=== PATIENT | female | born 1960 | race Two or more races ===

== ENCOUNTER 2017-03-03 21:20 | Inpatient (IN) | payer MEDICAID, OTHER ==
[~2017-03-03] VITALS: Ht 152.4 cm; Wt 86.1 kg
[2017-03-03] MEDS ORDERED: ALBUTEROL SULFATE 2.5MG/0.5ML ONE (21:35)
[2017-03-03 21:49] LABS: BASOPHILS # (AUTO) 0.11 x10^3/uL (0-0.1); BASOPHILS % (AUTO) 1 % (0-1); EOSINOPHILS # (AUTO) 1.26 x10^3/uL (0-0.4); EOSINOPHILS % (AUTO) 16 % (1-7); LYMPHOCYTES % (AUTO) 42 % (22-44); MD NO; MEAN CORPUSCULAR HEMOGLOBIN 28.7 pg (27.0-34.8); MEAN CORPUSCULAR HGB CONC 33.6 g/dL (32.4-35.8); MEAN CORPUSCULAR VOLUME 85.5 fL (80-100); MEAN PLATELET VOLUME 8.2 fL (7.4-10.4); MONOCYTES # (AUTO) 0.67 x10^3/uL (0.2-0.8); MONOCYTES % (AUTO) 8 % (2-9); NEUTROPHILS # (AUTO) 2.66 x10^3/uL (1.8-6.8); NEUTROPHILS % (AUTO) 33 % (42-75); PLATELET COUNT 341 x10^3/uL (130-400); RED BLOOD COUNT 5.59 x10^6/uL (3.82-5.3); RED CELL DISTRIBUTION WIDTH 12.6 % (9.6-15.2)
[2017-03-03 21:59] LABS: ALBUMIN 3.8 g/dL (3.4-5.0); ANION GAP 7 mmol/L (5-15); CALCIUM 8.7 mg/dL (8.5-10.1); CHLORIDE 108 mmol/L (98-107); CREATININE 0.71 mg/dL (0.55-1.02)
[2017-03-03] MEDS ORDERED: METF100P3 PO (21:59)
[2017-03-03] MEDS ORDERED: LISI-424 PO (22:00)
[2017-03-03] MEDS ORDERED: ALBUTEROL SULFATE 2.5 MG/3 ML NPPB ONE ×2 (22:00)
[2017-03-03] MEDS ORDERED: ALBUTEROL/IPRATROPIUM 2.5MG/0.5MG, 3 ML NPPB ONE (22:00)
[2017-03-03] MEDS ORDERED: HYDR12.53 PO (22:01)
[2017-03-03] MEDS ORDERED: PRED5POW3 PO (22:02)
[2017-03-03 22:03] LABS: TROPONIN I < 0.015 ng/mL (0.000-0.045)
[2017-03-03] MEDS ORDERED: ALBUTEROL SULFATE 2.5 MG/3 ML ONE (22:05)
[2017-03-03] MEDS ORDERED: AZITHROMYCIN 500 MG in SODIUM CHLORIDE 0.9% 250 ML IV ONE (23:30)
[2017-03-04] MEDS ORDERED: SODIUM CHLORIDE 0.9% 1,000ML IVBOLUS ONE
[2017-03-04] MEDS ORDERED: ENALAPRILAT 1.25 MG/ML, 2ML IVPush PRN
[2017-03-04] MEDS ORDERED: TEMAZEPAM 15 MG CAPSULE PO PRN
[2017-03-04] MEDS ORDERED: GUAIFENESIN/DM 200-20MG, 10ML UDC PO PRN ×2
[2017-03-04] MEDS ORDERED: POLYETHYLENE GLYCOL 17 GM PACKET PO PRN
[2017-03-04] MEDS ORDERED: ONDANSETRON ODT 4 MG PO PRN
[2017-03-04 01:35] VITALS: BP 158/99
[2017-03-04 01:41] VITALS: BP 158/99
[2017-03-04] MEDS: ACETAMINOPHEN 325 MG TABLET PO PRN ×2 (02:25→16:34)
[2017-03-04 02:49] LABS: RAPID INFLUENZA A Negative (Negative); RAPID INFLUENZA B Negative (Negative)
[2017-03-04] MEDS: methylPREDNISolone SOD SUCC 40 MG/ML IVPush SCH ×2 (03:36→12:23)
[2017-03-04] MEDS: MONTELUKAST 10 MG TABLET PO SCH ×2 (03:37→19:58)
[2017-03-04] MEDS ORDERED: ALBUTEROL/IPRATROPIUM 2.5MG/0.5MG, 3 ML NPPB PRN (04:00)
[2017-03-04] MEDS ORDERED: ALBUTEROL/IPRATROPIUM 2.5MG/0.5MG, 3 ML NPPB SCH (07:00)
[2017-03-04 07:42] VITALS: BP 112/74
[2017-03-04] MEDS: LORATADINE 10 MG TABLET PO SCH (08:17)
[2017-03-04] MEDS: metFORMIN 500 MG TABLET PO SCH ×2 (08:17→17:41)
[2017-03-04] MEDS: AZITHROMYCIN 250 MG TABLET PO SCH (08:18)
[2017-03-04] MEDS ORDERED: LISINOPRIL 20 MG TABLET PO ONE (09:00)
[2017-03-04] MEDS: INSULIN ASPART 100 UNITS/ML, PEN SQ-INSULIN SCH ×4 (09:35→19:58)
[2017-03-04] MEDS: ALBUTEROL/IPRATROPIUM 2.5MG/0.5MG, 3 ML NPPB SCH ×4 (10:50→22:30)
[2017-03-04 12:53] VITALS: BP 147/91
[2017-03-04] MEDS ORDERED: PNEUMOCOCCAL 23 VACCINE IM-VACC ONE (16:00)
[2017-03-04] MEDS ORDERED: FLU VACC QS2017-18 (36MOS+) UP/PF 0.5 ML IM-VACC ONE (16:00)
[2017-03-04 19:53] VITALS: BP 118/74
[2017-03-05] MEDS: methylPREDNISolone SOD SUCC 40 MG/ML IVPush SCH ×2 (00:10→12:24)
[2017-03-05 02:55] VITALS: BP 108/70
[2017-03-05] MEDS: ALBUTEROL/IPRATROPIUM 2.5MG/0.5MG, 3 ML NPPB SCH ×3 (06:00→15:24)
[2017-03-05 06:10] LABS: BASOPHILS # (AUTO) 0.02 x10^3/uL (0-0.1); BASOPHILS % (AUTO) 0 % (0-1); EOSINOPHILS # (AUTO) 0.01 x10^3/uL (0-0.4); EOSINOPHILS % (AUTO) 0 % (1-7); LYMPHOCYTES # (AUTO) 1.22 x10^3/uL (1-3.4); LYMPHOCYTES % (AUTO) 9 % (22-44); MD NO; MEAN CORPUSCULAR HEMOGLOBIN 28.7 pg (27.0-34.8); MEAN CORPUSCULAR HGB CONC 33.7 g/dL (32.4-35.8); MEAN PLATELET VOLUME 8.6 fL (7.4-10.4); MONOCYTES # (AUTO) 0.23 x10^3/uL (0.2-0.8); MONOCYTES % (AUTO) 2 % (2-9); NEUTROPHILS # (AUTO) 12.21 x10^3/uL (1.8-6.8); NEUTROPHILS % (AUTO) 89 % (42-75); PLATELET COUNT 345 x10^3/uL (130-400); RED CELL DISTRIBUTION WIDTH 12.8 % (9.6-15.2)
[2017-03-05 06:24] LABS: ANION GAP 8 mmol/L (5-15); CALCIUM 9.1 mg/dL (8.5-10.1); CHLORIDE 109 mmol/L (98-107)
[2017-03-05 06:27] LABS: CREATININE 0.78 mg/dL (0.55-1.02)
[2017-03-05 07:44] VITALS: BP 118/75
[2017-03-05] MEDS: INSULIN ASPART 100 UNITS/ML, PEN SQ-INSULIN SCH ×2 (09:45→12:21)
[2017-03-05] MEDS: metFORMIN 500 MG TABLET PO SCH (09:46)
[2017-03-05] MEDS: LORATADINE 10 MG TABLET PO SCH (09:46)
[2017-03-05] MEDS: AZITHROMYCIN 250 MG TABLET PO SCH (09:46)
[2017-03-05 13:59] VITALS: BP 136/83
[2017-03-05] MEDS ORDERED: GUAI5SYR PO (15:32)
[2017-03-05] MEDS ORDERED: PRED10TA PO (15:32)
[2017-03-05] MEDS ORDERED: ALBU8.5H8 INH (15:32)
[2017-03-05] MEDS ORDERED: AZIT250T89 PO (15:32)
== END 2017-03-05 17:40 | disposition home or self-care (01) | DRG 202 ==
LOC: ED 22:23 → EDIP 23:35 → 5SO 03-04 00:47 → 4WST 03-05 05:41
PROVIDERS: ADMIT Internal Medicine; ATTEND Internal Medicine
PROC: 3E0234Z Introduction of Serum, Toxoid and Vaccine into Muscle, Percutaneous Approach (ICD-10-PCS; principal; 2017-03-04)
PROC: 3E0234Z Introduction of Serum, Toxoid and Vaccine into Muscle, Percutaneous Approach (ICD-10-PCS; 2017-03-04)
DX: J45.51 Severe persistent asthma with (acute) exacerbation (principal); J96.01 Acute respiratory failure with hypoxia; D72.1 Eosinophilia; I10 Essential (primary) hypertension; J20.9 Acute bronchitis, unspecified; E11.9 Type 2 diabetes mellitus without complications; E66.9 Obesity, unspecified; R94.31 Abnormal electrocardiogram [ECG] [EKG]; J06.9 Acute upper respiratory infection, unspecified; Z68.37 Body mass index [BMI] 37.0-37.9, adult; Z79.84 Long term (current) use of oral hypoglycemic drugs; Z79.899 Other long term (current) drug therapy; Z23 Encounter for immunization
CPT/HCPCS: 36415; 71045; 80048; 82040; 82962; 84484; 85025; 87081; 87400; 87880; 90686; 90732; 93005; 94640; 96361; 96374; J0456; J1815; J7613; J7620; J2920; J7030; J7050; J7512

== ENCOUNTER 2019-03-22 15:47 | Emergency (ER) | payer MEDICAID, OTHER ==
[~2019-03-22] VITALS: Ht 157.5 cm; Wt 92.9 kg
[~2019-03-22 15:47] MED LIST: ALBU8.5H8 INH; AZIT250T89 PO; GUAI5SYR PO; HYDR12.517 PO; LISI-424 PO; METF100P3 PO; PRED10TA PO; PRED5POW3 PO
[2019-03-22] MEDS ORDERED: ONDANSETRON 2MG/ML, 2ML IVPush ONE (16:30)
[2019-03-22 16:36] LABS: BASOPHILS # (AUTO) 0.02 x10^3/uL (0-0.1); BASOPHILS % (AUTO) 1 % (0-1); EOSINOPHILS # (AUTO) 0.05 x10^3/uL (0-0.4); EOSINOPHILS % (AUTO) 1 % (1-7); LYMPHOCYTES # (AUTO) 0.99 x10^3/uL (1-3.4); LYMPHOCYTES % (AUTO) 20 % (22-44); MD NO; MEAN CORPUSCULAR HEMOGLOBIN 29.2 pg (27.0-34.8); MEAN CORPUSCULAR HGB CONC 33.6 g/dL (32.4-35.8); MEAN CORPUSCULAR VOLUME 86.9 fL (80-100); MEAN PLATELET VOLUME 8.7 fL (7.4-10.4); MONOCYTES % (AUTO) 4 % (2-9); NEUTROPHILS # (AUTO) 3.76 x10^3/uL (1.8-6.8); NEUTROPHILS % (AUTO) 75 % (42-75); PLATELET COUNT 312 x10^3/uL (130-400); RED BLOOD COUNT 5.28 x10^6/uL (3.82-5.3); RED CELL DISTRIBUTION WIDTH 12.8 % (9.6-15.2)
[2019-03-22 16:46] LABS: ALANINE AMINOTRANSFERASE 44 U/L (12-78); ALBUMIN 3.6 g/dL (3.4-5.0); ANION GAP 7 mmol/L (5-15); CALCIUM 8.6 mg/dL (8.5-10.1); CHLORIDE 111 mmol/L (98-107); CREATININE 0.86 mg/dL (0.55-1.02)
[2019-03-22 16:49] LABS: ALKALINE PHOSPHATASE 181 U/L (45-117); BILIRUBIN,TOTAL 0.8 mg/dL (0.2-1.0); TOTAL PROTEIN 7.6 g/dL (6.4-8.2)
[2019-03-22] MEDS ORDERED: MORPHINE SULFATE 4 MG/ML, 1ML ONE ×2 (17:08→17:58)
[2019-03-22] MEDS ORDERED: ONDANSETRON 2MG/ML, 2ML ONE (17:08)
[2019-03-22] MEDS ORDERED: KETOROLAC 30 MG/1 ML ONE (17:10)
[2019-03-22] MEDS: MORPHINE SULFATE 4 MG/ML, 1ML IVPush PRN ×2 (17:10→18:00)
--- NOTE | 2019-03-22 17:23 | NUR ---
AFTER ULTRASOUND COMPLETED IV ESTABLISHED AND MEDICATED FOR PAIN AND NAUSEA NOTED ON MAR
[2019-03-22] MEDS ORDERED: KETOROLAC 30 MG/1 ML IVPush ONE (17:30)
--- NOTE | 2019-03-22 17:43 | NUR ---
MD SPEAKING WITH PT ABOUT TEST RESULTS
[2019-03-22 18:19] VITALS: BP 122/84
== END 2019-03-22 18:33 | disposition home or self-care (01) ==
LOC: ED 18:30
DX: K80.20 Calculus of gallbladder without cholecystitis without obstruction (principal); I10 Essential (primary) hypertension; E11.9 Type 2 diabetes mellitus without complications
CPT/HCPCS: 36415; 76700; 80053; 83690; 85025; 96374; 96375; 96376; 99284; J1885; J2270; J2405

== ENCOUNTER 2020-07-27 17:18 | Emergency (ER) | payer SELFPAY ==
[~2020-07-27] VITALS: Ht 160 cm; Wt 80.5 kg
[~2020-07-27 17:18] MED LIST changes: -LISI-424 PO; +LISI-606 PO
--- NOTE | 2020-07-27 17:35 | NUR ---
INDUSTRIAL PAINTER: EKG DONE IN TRIAGE. PT 88% ON RA AND PLACED ON 2 L OF O2 NC TO INCREASE SPO2 TO 95%. BARGE HAND NOTIFIED OF PT CONDITION IN TRIAGE. ROOM ASSIGNMENT GIVEN TO THIS RN AT THIS TIME.
--- NOTE | 2020-07-27 18:17 | NUR ---
Pt states she uses her nebulizer multiple times a day when she needs it. She's need it more recently with the problem that brings her here today. Pt states 3 months ago she began feeling full. Pt denies pain. Pt states she is continually needing to take meds to have a BM. LBM yesterday. Pt states difficulty breathing. Using 2L NC here, no home O2. MD Harper at bedside for eval.
[2020-07-27 18:27] LABS: MEAN CORPUSCULAR HGB CONC 33.6 g/dL (32.4-35.8); PLATELET COUNT 315 x10^3/uL (130-400); RED BLOOD COUNT 5.15 x10^6/uL (3.82-5.3); RED CELL DISTRIBUTION WIDTH 12.9 % (9.6-15.2)
[2020-07-27] MEDS ORDERED: ALBUTEROL/IPRATROPIUM 2.5MG/0.5MG, 3 ML NPPB ONE (18:30)
[2020-07-27 18:38] LABS: ALANINE AMINOTRANSFERASE 21 U/L (12-78); ALBUMIN 3.4 g/dL (3.4-5.0); ANION GAP 7 mmol/L (5-15); CALCIUM 8.5 mg/dL (8.5-10.1); CHLORIDE 109 mmol/L (98-107); CREATININE 0.63 mg/dL (0.55-1.02)
[2020-07-27 18:40] LABS: ALKALINE PHOSPHATASE 95 U/L (45-117); BILIRUBIN,TOTAL 0.6 mg/dL (0.2-1.0); TOTAL PROTEIN 7.2 g/dL (6.4-8.2)
--- NOTE | 2020-07-27 18:48 | NUR ---
Pt to imaging.
[2020-07-27 19:08] LABS: <PLATELET ESTIMATE> ADEQUATE; <PLT MORPHOLOGY> NORMAL PLT MORPH; EOS#(MANUAL) 1.66 x10^3/uL (0.0-0.4); EOS% (MANUAL) 23 % (1-7); LYMPH#(MANUAL) 2.95 x10^3/uL (1-3.4); LYMPHS% (MANUAL) 41 % (22-44); MONOS#(MANUAL) 0.36 x10^3/uL (0.3-2.7); MONOS% (MANUAL) 5 % (2-9); SEG#(MANUAL) 2.23 x10^3/uL (1.8-6.8); SEGS% (MANUAL) 31 % (42-75)
[2020-07-27 19:10] LABS: <RBC MORPHOLOGY> NORMAL
--- NOTE | 2020-07-27 19:12 | NUR ---
Report to MANUEL RUSSELL, to assume full care.
[2020-07-27] MEDS ORDERED: ALBUTEROL/IPRATROPIUM 2.5MG/0.5MG, 3 ML ONE (19:16)
[2020-07-27 19:47] VITALS: BP 135/80
== END 2020-07-27 19:59 | disposition home or self-care (01) ==
LOC: ED 18:16
DX: J45.40 Moderate persistent asthma, uncomplicated (principal); K20.90 Esophagitis, unspecified without bleeding; G89.29 Other chronic pain; R06.02 Shortness of breath; R94.31 Abnormal electrocardiogram [ECG] [EKG]; E11.9 Type 2 diabetes mellitus without complications; I10 Essential (primary) hypertension; J45.909 Unspecified asthma, uncomplicated
CPT/HCPCS: 36415; 71045; 74220; 80053; 85025; 93005; 94640; 99285

== ENCOUNTER 2020-08-26 20:59 | Inpatient (IN) | payer OTHER ==
[~2020-08-26] VITALS: Ht 154.9 cm; Wt 78.6 kg
[2020-08-26] MEDS ORDERED: ONDANSETRON 2MG/ML, 2ML ONE (21:28)
[2020-08-26] MEDS ORDERED: HYDROmorphone 1 MG/ML, 1ML INJ ONE (21:28)
[2020-08-26] MEDS ORDERED: KETOROLAC 30 MG/1 ML ONE (21:28)
[2020-08-26] MEDS ORDERED: HYDROmorphone 1 MG/ML, 1ML INJ IV ONE (21:30)
[2020-08-26] MEDS ORDERED: KETOROLAC 30 MG/1 ML IVPush ONE (21:30)
[2020-08-26] MEDS ORDERED: SODIUM CHLORIDE 0.9% 1,000ML IVBOLUS ONE (21:30)
[2020-08-26] MEDS ORDERED: SODIUM CHLORIDE FLUSH 10ML SYR IVF ONE (21:30)
[2020-08-26] MEDS ORDERED: ONDANSETRON 2MG/ML, 2ML IVPush ONE (21:30)
[2020-08-26 22:15] LABS: MICROSCOPIC AUTO
[2020-08-26 22:20] LABS: BASOPHILS % (AUTO) 1 % (0-1); EOSINOPHILS % (AUTO) 10 % (1-7); LYMPHOCYTES % (AUTO) 12 % (22-44); MEAN CORPUSCULAR HEMOGLOBIN 28.9 pg (27.0-34.8); MEAN CORPUSCULAR HGB CONC 33.4 g/dL (32.4-35.8); MEAN PLATELET VOLUME 8.6 fL (7.4-10.4); MONOCYTES % (AUTO) 10 % (2-9); NEUTROPHILS % (AUTO) 67 % (42-75); PLATELET COUNT 347 x10^3/uL (130-400); RED BLOOD COUNT 5.65 x10^6/uL (3.82-5.3); RED CELL DISTRIBUTION WIDTH 12.4 % (9.6-15.2)
[2020-08-26 22:24] LABS: ALANINE AMINOTRANSFERASE 23 U/L (12-78); ALBUMIN 3.8 g/dL (3.4-5.0); ANION GAP 7 mmol/L (5-15); CALCIUM 9.2 mg/dL (8.5-10.1); CHLORIDE 101 mmol/L (98-107)
[2020-08-26 22:29] LABS: ALKALINE PHOSPHATASE 108 U/L (45-117); BILIRUBIN,TOTAL 1.1 mg/dL (0.2-1.0); TOTAL PROTEIN 8.8 g/dL (6.4-8.2); TROPONIN I < 0.015 ng/mL (0.000-0.045)
--- NOTE | 2020-08-26 22:32 | NUR ---
passed PO challenge
--- NOTE | 2020-08-26 22:49 | NUR ---
Pt desat when asleep, placed on 2L NC to maintain appropriate O2 sat
[2020-08-27] MEDS ORDERED: MORPHINE SULFATE 4 MG/ML, 1ML ONE (01:58)
[2020-08-27] MEDS ORDERED: MORPHINE SULFATE 4 MG/ML, 1ML IVPush PRN (02:00)
[2020-08-27] MEDS ORDERED: OMNIPAQUE 350 MG/ML, 100ML BOTTLE ONE (02:56)
[2020-08-27] MEDS ORDERED: AZITHROMYCIN 500 MG in SODIUM CHLORIDE 0.9% 250 ML IVPB ONE (03:30)
[2020-08-27] MEDS ORDERED: CEFTRIAXONE 1,000 MG in DEXTROSE 5% 50 ML IVPB ONE (03:30)
[2020-08-27] MEDS ORDERED: MELATONIN 5 MG TABLET PO PRN (04:00)
[2020-08-27] MEDS ORDERED: LABETALOL 5MG/ML, 20ML IVPush PRN (04:00)
[2020-08-27] MEDS: ACETAMINOPHEN 500 MG TABLET PO SCH ×6 (04:00→23:36)
[2020-08-27] MEDS ORDERED: ONDANSETRON 2MG/ML, 2ML IVPush PRN (04:00)
--- NOTE | 2020-08-27 04:50 | NUR ---
Parvin avelar in ED - 08/27/20 at 0459 by WILLIE Pt given morphine for pain, stating "morphine doesn't work, only dilaudid" pt asked if they still want the morphine which he replied "yes". Pt told that we can try the med that is ordered and reassess pain to see if we need further action. Pt agreed to this intervention, STACIE
[2020-08-27 04:51] LABS: BASOPHILS % (AUTO) 1 % (0-1); EOSINOPHILS % (AUTO) 8 % (1-7); LYMPHOCYTES % (AUTO) 15 % (22-44); MEAN CORPUSCULAR HGB CONC 33.4 g/dL (32.4-35.8); MEAN PLATELET VOLUME 8.1 fL (7.4-10.4); MONOCYTES % (AUTO) 11 % (2-9); NEUTROPHILS % (AUTO) 64 % (42-75); PLATELET COUNT 281 x10^3/uL (130-400); RED BLOOD COUNT 4.74 x10^6/uL (3.82-5.3); RED CELL DISTRIBUTION WIDTH 12.3 % (9.6-15.2)
--- NOTE | 2020-08-27 04:59 | NUR ---
Pt continues to rest in bed with eyes closed, even and symmetrical chest rise, VSS, at bedside
[2020-08-27] MEDS ORDERED: ALBUTEROL SULFATE 2.5 MG/3 ML NPPB PRN (05:00)
[2020-08-27 05:02] LABS: ANION GAP 4 mmol/L (5-15); CALCIUM 7.9 mg/dL (8.5-10.1); CHLORIDE 104 mmol/L (98-107); CREATININE 0.67 mg/dL (0.55-1.02)
[2020-08-27] MEDS ORDERED: ALBUTEROL SULFATE 2.5 MG/3 ML ONE (05:03)
--- NOTE | 2020-08-27 05:10 | NUR ---
Report to Amanda JACKSON
[2020-08-27] MEDS: morphine SULFATE 10 MG/ML, 1ML IVPush PRN (05:53)
[2020-08-27 05:57] VITALS: BP 117/75
[2020-08-27] MEDS ORDERED: LISI1TAB39 PO (06:03)
[2020-08-27] MEDS ORDERED: MONT10TA17 PO (06:10)
[2020-08-27] MEDS ORDERED: LORA10TA41 PO (06:10)
[2020-08-27] MEDS ORDERED: methylPREDNISolone SOD SUCC 40 MG/ML IV ONE (06:30)
[2020-08-27] MEDS: INSULIN LISPRO 100 UNITS/ML, PEN SQ-INSULIN SCH ×4 (07:00→21:02)
[2020-08-27] MEDS ORDERED: ALBUTEROL SULFATE 2.5 MG/3 ML NPPB SCH (07:00)
[2020-08-27 07:34] VITALS: BP 104/69
[2020-08-27] MEDS ORDERED: FAMOTIDINE 20 MG/2 ML IVPush SCH (09:00)
[2020-08-27] MEDS: ENOXAPARIN 40 MG/0.4 ML SQ SCH (10:33)
[2020-08-27] MEDS: ALBUTEROL HFA 90 MCG/SPRAY INH SCH ×2 (10:34→16:48)
[2020-08-27 12:41] VITALS: BP 111/70
[2020-08-27] MEDS ORDERED: METF500T17 PO (14:49)
[2020-08-27 19:35] VITALS: BP 111/68
[2020-08-27] MEDS: FAMOTIDINE 20 MG TABLET PO SCH (19:43)
[2020-08-27] MEDS: CEFTRIAXONE 1,000 MG in DEXTROSE 5% 50 ML IVPB SCH (21:02)
[2020-08-27 23:37] VITALS: BP 108/61
[2020-08-28] MEDS: ACETAMINOPHEN 500 MG TABLET PO SCH ×5 (03:27→20:25)
[2020-08-28] MEDS: AZITHROMYCIN 500 MG TABLET PO SCH ×2 (03:28→08:56)
[2020-08-28] MEDS ORDERED: CEFTRIAXONE 2 GM in DEXTROSE 5% 50 ML IVPB SCH (04:30)
[2020-08-28 06:23] LABS: BASOPHILS % (AUTO) 0 % (0-1); EOSINOPHILS % (AUTO) 2 % (1-7); LYMPHOCYTES % (AUTO) 17 % (22-44); MEAN CORPUSCULAR HEMOGLOBIN 28.7 pg (27.0-34.8); MEAN PLATELET VOLUME 8.8 fL (7.4-10.4); MONOCYTES % (AUTO) 8 % (2-9); NEUTROPHILS % (AUTO) 73 % (42-75); PLATELET COUNT 344 x10^3/uL (130-400); RED BLOOD COUNT 4.86 x10^6/uL (3.82-5.3); RED CELL DISTRIBUTION WIDTH 12.4 % (9.6-15.2)
[2020-08-28 06:31] LABS: ALANINE AMINOTRANSFERASE 17 U/L (12-78); ALBUMIN 2.9 g/dL (3.4-5.0); ANION GAP 3 mmol/L (5-15); CALCIUM 8.8 mg/dL (8.5-10.1); CHLORIDE 107 mmol/L (98-107); CREATININE 0.54 mg/dL (0.55-1.02)
[2020-08-28 06:33] LABS: ALKALINE PHOSPHATASE 83 U/L (45-117); BILIRUBIN,TOTAL 0.5 mg/dL (0.2-1.0); TOTAL PROTEIN 7.2 g/dL (6.4-8.2)
[2020-08-28] MEDS: INSULIN LISPRO 100 UNITS/ML, PEN SQ-INSULIN SCH ×4 (07:00→19:48)
[2020-08-28] MEDS: ALBUTEROL SULFATE 2.5 MG/3 ML NPPB SCH ×5 (07:50→22:00)
[2020-08-28 08:06] VITALS: BP 148/84
[2020-08-28] MEDS: ENOXAPARIN 40 MG/0.4 ML SQ SCH (08:56)
[2020-08-28] MEDS: morphine SULFATE 10 MG/ML, 1ML IVPush PRN ×4 (08:56→20:42)
[2020-08-28] MEDS: FAMOTIDINE 20 MG TABLET PO SCH ×2 (08:56→20:25)
[2020-08-28] MEDS: KETOROLAC 30 MG/1 ML IV PRN ×2 (09:38→21:40)
[2020-08-28] MEDS: GUAIFENESIN/DM 200-20MG, 10ML UDC PO PRN ×2 (13:13→20:29)
[2020-08-28] MEDS: POLYETHYLENE GLYCOL 17 GM PACKET PO PRN (13:13)
[2020-08-28 13:25] VITALS: BP 120/78
[2020-08-28] MEDS: LORATADINE 10 MG TABLET PO SCH (15:37)
[2020-08-28 18:45] VITALS: BP 124/81
[2020-08-28] MEDS: CEFTRIAXONE 1,000 MG in DEXTROSE 5% 50 ML IVPB SCH (20:25)
[2020-08-29 00:05] VITALS: BP 133/87
[2020-08-29] MEDS: ACETAMINOPHEN 500 MG TABLET PO SCH ×6 (00:05→20:48)
[2020-08-29] MEDS ORDERED: ALBUTEROL SULFATE 2.5 MG/3 ML NPPB ONE (02:30)
[2020-08-29] MEDS: KETOROLAC 30 MG/1 ML IV PRN (04:43)
[2020-08-29] MEDS: ALBUTEROL SULFATE 2.5 MG/3 ML NPPB SCH ×5 (06:00→22:30)
[2020-08-29 06:08] LABS: HCT (SEDRATE) 39.6 % (34.6-47.8)
[2020-08-29 06:11] LABS: BASOPHILS % (AUTO) 2 % (0-1); EOSINOPHILS % (AUTO) 19 % (1-7); LYMPHOCYTES % (AUTO) 28 % (22-44); MEAN CORPUSCULAR HEMOGLOBIN 28.9 pg (27.0-34.8); MEAN PLATELET VOLUME 8.3 fL (7.4-10.4); MONOCYTES % (AUTO) 9 % (2-9); NEUTROPHILS % (AUTO) 43 % (42-75); PLATELET COUNT 295 x10^3/uL (130-400); RED BLOOD COUNT 4.51 x10^6/uL (3.82-5.3); RED CELL DISTRIBUTION WIDTH 12.5 % (9.6-15.2)
[2020-08-29 06:21] LABS: ANION GAP 2 mmol/L (5-15); CALCIUM 8.3 mg/dL (8.5-10.1); CHLORIDE 106 mmol/L (98-107)
[2020-08-29] MEDS: INSULIN LISPRO 100 UNITS/ML, PEN SQ-INSULIN SCH ×4 (07:00→20:49)
[2020-08-29 07:51] VITALS: BP 132/85
[2020-08-29] MEDS: FAMOTIDINE 20 MG TABLET PO SCH ×2 (08:10→20:48)
[2020-08-29] MEDS: LORATADINE 10 MG TABLET PO SCH (08:10)
[2020-08-29] MEDS: ENOXAPARIN 40 MG/0.4 ML SQ SCH (08:11)
[2020-08-29] MEDS: morphine SULFATE 10 MG/ML, 1ML IVPush PRN ×2 (08:18→12:17)
[2020-08-29 12:52] VITALS: BP 131/78
[2020-08-29] MEDS ORDERED: SENNA/DOCUSATE TABLET PO PRN (13:00)
[2020-08-29] MEDS ORDERED: morphine SULFATE 10 MG/ML, 1ML IVPush PRN (16:00)
[2020-08-29 18:52] VITALS: BP 155/90
[2020-08-29] MEDS: CEFTRIAXONE 1,000 MG in DEXTROSE 5% 50 ML IVPB SCH (20:48)
[2020-08-30] MEDS: ACETAMINOPHEN 500 MG TABLET PO SCH ×6 (00:17→20:06)
[2020-08-30] MEDS: KETOROLAC 30 MG/1 ML IV PRN ×2 (01:20→19:34)
[2020-08-30 02:22] VITALS: BP 124/74
[2020-08-30 05:04] LABS: BASOPHILS % (AUTO) 1 % (0-1); EOSINOPHILS % (AUTO) 4 % (1-7); LYMPHOCYTES % (AUTO) 27 % (22-44); MEAN CORPUSCULAR HEMOGLOBIN 29.1 pg (27.0-34.8); MEAN CORPUSCULAR HGB CONC 33.5 g/dL (32.4-35.8); MONOCYTES % (AUTO) 10 % (2-9); NEUTROPHILS % (AUTO) 59 % (42-75); PLATELET COUNT 363 x10^3/uL (130-400); RED BLOOD COUNT 4.66 x10^6/uL (3.82-5.3); RED CELL DISTRIBUTION WIDTH 12.2 % (9.6-15.2)
[2020-08-30 05:13] LABS: ANION GAP 3 mmol/L (5-15); CALCIUM 8.7 mg/dL (8.5-10.1); CHLORIDE 110 mmol/L (98-107); CREATININE 0.43 mg/dL (0.55-1.02)
[2020-08-30 06:48] VITALS: BP 157/98
[2020-08-30] MEDS: INSULIN LISPRO 100 UNITS/ML, PEN SQ-INSULIN SCH ×4 (07:00→20:09)
[2020-08-30] MEDS: FAMOTIDINE 20 MG TABLET PO SCH ×2 (07:15→20:06)
[2020-08-30] MEDS: HYDROcodone/APAP 5/325 TABLET PO PRN (07:15)
[2020-08-30] MEDS: GUAIFENESIN/DM 200-20MG, 10ML UDC PO PRN (07:15)
[2020-08-30] MEDS: LORATADINE 10 MG TABLET PO SCH (07:15)
[2020-08-30] MEDS: ALBUTEROL SULFATE 2.5 MG/3 ML NPPB SCH ×5 (07:40→21:16)
[2020-08-30] MEDS: ENOXAPARIN 40 MG/0.4 ML SQ SCH (09:53)
[2020-08-30] MEDS: GUAIFENESIN ER 600 MG TABLET PO SCH ×2 (11:54→20:06)
[2020-08-30 12:12] VITALS: BP 167/99
[2020-08-30] MEDS: POLYETHYLENE GLYCOL 17 GM PACKET PO PRN (13:39)
[2020-08-30 15:12] LABS: OCCULT BLOOD NEGATIVE (NEGATIVE)
[2020-08-30] MEDS: CEFTRIAXONE 1,000 MG in DEXTROSE 5% 50 ML IVPB SCH (20:59)
[2020-08-31 00:13] VITALS: BP 133/81
[2020-08-31] MEDS: ACETAMINOPHEN 500 MG TABLET PO SCH ×4 (00:17→12:00)
[2020-08-31] MEDS: HYDROcodone/APAP 5/325 TABLET PO PRN (05:47)
[2020-08-31] MEDS: ALBUTEROL SULFATE 2.5 MG/3 ML NPPB SCH ×2 (07:00→10:45)
[2020-08-31] MEDS: INSULIN LISPRO 100 UNITS/ML, PEN SQ-INSULIN SCH ×2 (07:00→11:00)
[2020-08-31 08:06] VITALS: BP 163/102
[2020-08-31] MEDS: FAMOTIDINE 20 MG TABLET PO SCH (09:24)
[2020-08-31] MEDS: LORATADINE 10 MG TABLET PO SCH (09:24)
[2020-08-31] MEDS: GUAIFENESIN ER 600 MG TABLET PO SCH (09:24)
[2020-08-31] MEDS: ENOXAPARIN 40 MG/0.4 ML SQ SCH (09:25)
[2020-08-31] MEDS ORDERED: DOXY100C2 PO (10:39)
[2020-08-31] MEDS ORDERED: AMOX500T PO (10:39)
[2020-08-31] MEDS ORDERED: PRED20TA PO (10:39)
[2020-08-31] MEDS ORDERED: HYDR-2214 PO (10:39)
[2020-08-31] MEDS ORDERED: SENN-211 PO (10:39)
== END 2020-08-31 13:20 | disposition home or self-care (01) | DRG 193 ==
LOC: ED 21:20 → EDIP 08-27 03:58 → 3N 08-27 05:42 → DCLOUNGE 08-31 13:10
PROVIDERS: ADMIT Internal Medicine; ATTEND Family Medicine
PROC: 0T9B30Z Drainage of Bladder with Drainage Device, Percutaneous Approach (ICD-10-PCS; principal; 2020-08-27)
DX: J15.9 Unspecified bacterial pneumonia (principal); J96.01 Acute respiratory failure with hypoxia; J45.901 Unspecified asthma with (acute) exacerbation; E87.1 Hypo-osmolality and hyponatremia; K80.10 Calculus of gallbladder with chronic cholecystitis without obstruction; E11.9 Type 2 diabetes mellitus without complications; F19.10 Other psychoactive substance abuse, uncomplicated; I10 Essential (primary) hypertension; K21.9 Gastro-esophageal reflux disease without esophagitis; K29.70 Gastritis, unspecified, without bleeding; K38.1 Appendicular concretions; K52.9 Noninfective gastroenteritis and colitis, unspecified; K59.00 Constipation, unspecified; M43.16 Spondylolisthesis, lumbar region; M51.37 Other intervertebral disc degeneration, lumbosacral region; Z20.822 Contact with and (suspected) exposure to COVID-19; Z82.3 Family history of stroke; Z79.899 Other long term (current) drug therapy; Z79.891 Long term (current) use of opiate analgesic; Z79.01 Long term (current) use of anticoagulants
CPT/HCPCS: 36415; 74220; 84145; 96374; 96375; 99285; J7613; 71275; 74175; 74176; 80048; 80053; 81001; 82272; 82962; 83036; 83690; 84484; 85025; 85651; 86140; 87040; 87086; 93005; 93306; 94640; G0378; J0456; J0696; J1170; J1650; J1885; J2405; Q9967; U0005; J1815; J2270; J2920; J7030; J7050; J7512; U0003